=== PATIENT | female | born 1965 | race Caucasian/White ===

== ENCOUNTER 2024-02-25 08:10 | Emergency (ER) | payer OTHER ==
[~2024-02-25] VITALS: Ht 170.2 cm; Wt 61.5 kg
[2024-02-25 08:47] LABS: BASOPHILS # (AUTO) 0.1 X10'3 (0-0.2); BASOPHILS % (AUTO) 1.2 % (0-1); EOSINOPHILS # (AUTO) 0.4 X10'3 (0-0.9); EOSINOPHILS % (AUTO) 5.7 % (0-6); HEMATOCRIT 42.6 % (35.0-45.0); HEMOGLOBIN 13.8 g/dl (12.0-16.0); LYMPHOCYTES % (AUTO) 32.3 % (21-51); MEAN CORPUSCULAR HEMOGLOBIN 27.2 PG (27.0-31.0); MEAN CORPUSCULAR HGB CONC 32.3 g/dL (33.0-36.5); MEAN CORPUSCULAR VOLUME 84.2 FL (78-98); MEAN PLATELET VOLUME 8.9 FL (7.4-10.4); MONOCYTES # (AUTO) 0.5 X10'3 (0-0.9); MONOCYTES % (AUTO) 7.2 % (2-12); NEUTROPHILS # (AUTO) 3.4 X10'3 (1.8-7.7); NEUTROPHILS % (AUTO) 53.6 % (42-75); PLATELET COUNT 229 X10'3 (140-440); RED BLOOD COUNT 5.06 X10'6 (4.20-5.60); RED CELL DISTRIBUTION WIDTH 14.6 % (11.5-14.5); WHITE BLOOD COUNT 6.3 X10'3 (4.5-11.0)
[2024-02-25 09:08] LABS: ALANINE AMINOTRANSFERASE 24 U/L (12-78); ALBUMIN 3.6 G/DL (3.4-5.0); ALKALINE PHOSPHATASE 51 IU/L (46-116); ANION GAP 7 (8-16); ASPARTATE AMINO TRANSFERASE 19 U/L (10-37); BILIRUBIN,TOTAL 1.6 MG/DL (0.1-1.0); BLOOD UREA NITROGEN 20 MG/DL (7-18); BUN/CREATININE RATIO 21.3 (10.0-20.0); CALCIUM 8.8 MG/DL (8.5-10.1); CHLORIDE 104 MMOL/L (99-107); CREATININE 0.94 MG/DL (0.40-0.90); GLUCOSE 99 MG/DL (70-104); POTASSIUM 3.7 MMOL/L (3.5-5.1); SODIUM 138 MMOL/L (135-145); TOTAL CARBON DIOXIDE 26.8 MMOL/L (24-32); TOTAL PROTEIN 7.1 G/DL (6.4-8.2); eCRCL 63 ML/MIN; eGFR 61 ML/MIN
[2024-02-25 09:19] LABS: PRO BRAIN NATRIURETIC PEPTIDE 194 PG/ML (0-125)
[2024-02-25 09:31] LABS: D-DIMER 0.36 MG/L FEU (0-0.50)
[2024-02-25] MEDS ORDERED: ibuprofen tablet 400 MG TABLET PO ONE (09:35)
[2024-02-25] MEDS: ibuprofen 200mg tablet PO ONE (09:58)
[2024-02-25 10:06] VITALS: BP 129/62; PULSE 57; RESP 18; TEMP 98.2; O2SAT 100
== END 2024-02-25 10:12 | disposition home or self-care (01) ==
LOC: ER 08:11
DX: R09.1 Pleurisy (principal); M79.602 Pain in left arm
CPT/HCPCS: 36415; 71045; 80053; 83880; 84484; 85025; 85379; 93005; 99285